=== PATIENT | male | born 1990 | race Caucasian/White ===

== ENCOUNTER → 2023-03-15 15:15 | Outpatient (BNVA) | payer MEDICARE, MEDICAID, SELFPAY | PROVIDERS: PCP Nurse Practitioner Family; Referring Provider Nurse Practitioner Family; Visit Provider Specialist | DX: F31.89 Other bipolar disorder (principal); F06.30 Mood disorder due to known physiological condition, unspecified | CPT/HCPCS: 99204 ==

== ENCOUNTER → 2023-09-30 13:33 | Outpatient (BNVA) | payer MEDICARE, MEDICAID, SELFPAY | PROVIDERS: PCP Nurse Practitioner Family; Referring Provider Nurse Practitioner Family; Visit Provider Student in an Organized Health Care Education/Training Program | DX: M25.561 Pain in right knee (principal); Z46.89 Encounter for fitting and adjustment of other specified devices; M25.562 Pain in left knee | CPT/HCPCS: 73560; 73565 ==

== ENCOUNTER 2023-09-30 14:52 | Outpatient (CLI) | payer MEDICARE, MEDICAID, SELFPAY | END 2023-09-30 14:53 | disposition home or self-care (01) | LOC: SPT 14:53 | PROVIDERS: PCP Nurse Practitioner Family; Visit Provider Student in an Organized Health Care Education/Training Program | DX: Z46.89 Encounter for fitting and adjustment of other specified devices (principal); M25.561 Pain in right knee; M25.562 Pain in left knee | CPT/HCPCS: 97760; L1812 ==

== ENCOUNTER → 2024-03-23 13:22 | Outpatient (BNVA) | payer MEDICARE, MEDICAID, SELFPAY | PROVIDERS: PCP Nurse Practitioner Family; Visit Provider Student in an Organized Health Care Education/Training Program | DX: M25.561 Pain in right knee (principal); M25.562 Pain in left knee; M25.362 Other instability, left knee | CPT/HCPCS: 73560; 73565; 99213 ==

== ENCOUNTER 2024-04-05 13:19 | Outpatient (CLI) | payer MEDICAID, SELFPAY ==
--- NOTE | 2024-04-05 13:45 | MR_ITS ---
WS: [id number] MRI LEFT KNEE HISTORY: left knee patellar instability COMPARISON: 03/23/2024 Anterior cruciate ligament: Intact. Posterior cruciate ligament: Intact. Medial collateral ligament: Intact. Posterior lateral corner structures: Intact. Medial menisci: Posterior horn is normal. Abnormal T2 signal extending to the free edge of the anteri or horn. On the coronal projection there is increased T2 signal extending through the width of the me niscus centrally. This is most likely a radial meniscal tear. Lateral meniscus: Intact. Normal signal, size and shape. Extensor mechanism: Distal quadriceps tendon and patellar tendons are intact. Fluid and soft tissue: No joint effusion. No Blackwell's cyst. Osseous and articular structures: Patellofemoral compartment: Normal position of the patella. Thinning and loss of cartilage over the m edial patellar facet with underlying subchondral edema. The lateral patellar facet is intact. Medial compartment: No marrow edema. Very minimal superficial fissuring involving the cartilage along the weightbearing surface of femoral condyle. This is at the site of the the suspected radial tear. Lateral compartment: Mild narrowing. 7 mm defect in the mid lateral tibial plateau extends to the wid th of the cartilage. No marrow edema. MR/MR knee LT wo con* [id number] IMPRESSION: 1. Radial meniscal tear involving anterior horn of the medial meniscus towards the free edge. 2. No ACL tear. 3. Mild chondromalacia medial patellar facet with underlying subchondral edema . 4. 7 mm chondromalacia mid lateral tibial plateau. No underlying marrow edema. 5. Superficial fissuring of the cartilage on the weightbearing surface of the medial femoral condyle at the site of the radial tear.
== END 2024-04-05 13:20 | disposition home or self-care (01) ==
LOC: RAD 13:19
PROVIDERS: PCP Nurse Practitioner Family; Visit Provider Student in an Organized Health Care Education/Training Program
DX: M23.212 Derangement of anterior horn of medial meniscus due to old tear or injury, left knee (principal); M25.362 Other instability, left knee; M94.262 Chondromalacia, left knee; X58.XXXA Exposure to other specified factors, initial encounter
CPT/HCPCS: 73721

== ENCOUNTER 2024-07-23 18:29 | Emergency (ER) | payer MEDICARE, MEDICAID, SELFPAY ==
[2024-07-23 18:38] VITALS: BP 136/94; PULSE 80; RESP 20; TEMP 37.2; O2SAT 96; BMI 34.3
--- NOTE | 2024-07-23 19:04 | ECG_ITS ---
[employer] Precog Test Date: 2024-07-23 Pat Name: Hamilton Collazo Department: Room: Gender: Male [employer] Sales Counter Manager: : 1990 Requested By: Chuy Stark Order Number: [id number] Lauren MD: Vanesa Cope M.D. Measurements Intervals [place] Rate: 55 P: 30 GA: 175 QRS: 3 QRSD: 112 T: 24 QT: 415 QTc: 400 Interpretive Statements SINUS BRADYCARDIA MODERATE INTRAVENTRICULAR CONDUCTION DELAY [110+ ms QRS DURATION] MINIMAL VOLTAGE CRITERIA FOR LVH, CONSIDER NORMAL VARIANT [MEETS CRITERIA IN ONE OF: R(aVL), S(V1), R(V5), R(V5/V6)+S(V1)] No previous ECG available for comparison Electronically Signed On 07-24-2024 21:03:26 CDT by Vanesa Coep M.D. [email or web address]
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
[2024-07-23 21:01] VITALS: BP 139/91; PULSE 84; O2SAT 97
== END 2024-07-23 21:02 | disposition home or self-care (01) ==
PROVIDERS: Emergency Provider Emergency Medicine; PCP Nurse Practitioner Family
DX: R45.87 Impulsiveness (principal); Z79.82 Long term (current) use of aspirin; F17.210 Nicotine dependence, cigarettes, uncomplicated
CPT/HCPCS: 93005; 99283

== ENCOUNTER → 2024-09-18 14:57 | Outpatient (BNVA) | payer MEDICARE, MEDICAID, SELFPAY | PROVIDERS: PCP Nurse Practitioner Family; Visit Provider Podiatrist Foot & Ankle Surgery | DX: M25.571 Pain in right ankle and joints of right foot (principal); M65.971 Unspecified synovitis and tenosynovitis, right ankle and foot | CPT/HCPCS: 99203 ==

== ENCOUNTER 2024-10-01 05:00 | Outpatient (RCR) | payer MEDICARE, MEDICAID, SELFPAY | END 2024-10-30 23:59 | disposition home or self-care (01) | LOC: APT 05:00 | PROVIDERS: Visit Provider Podiatrist Foot & Ankle Surgery | DX: M65.871 Other synovitis and tenosynovitis, right ankle and foot (principal) | CPT/HCPCS: 97161 ==

== ENCOUNTER → 2024-10-10 10:51 | Outpatient (BNVA) | payer MEDICARE, MEDICAID, SELFPAY | PROVIDERS: PCP Nurse Practitioner Family; Visit Provider Podiatrist Foot & Ankle Surgery | DX: S99.911A Unspecified injury of right ankle, initial encounter (principal); M65.971 Unspecified synovitis and tenosynovitis, right ankle and foot; X58.XXXA Exposure to other specified factors, initial encounter | CPT/HCPCS: 99213 ==